=== PATIENT | female | born 2005 | race Caucasian/White ===

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

== ENCOUNTER 2023-01-29 16:08 | Outpatient (REF) | payer OTHER, SELFPAY ==
--- NOTE | ~2023-01-29 | XR_ITS ---
EXAMINATION: XR HIP, LEFT CLINICAL INFORMATION: Left hip pain COMPARISON: None available. TECHNIQUE: Two views of the left hip. FINDINGS: Bones and soft tissues are normal. No fracture. Alignment is anatomic. Hip joint space is maintained. XR/XR hip LT min 2V IMPRESSION: Normal left hip.
[2023-01-29 16:22] LABS: MANUAL DIFF FLAG NO
[2023-01-29 18:07] LABS: Basophils Percent Auto 0.4 % (0-2); Eosinophils Absolute Auto 0.1 X10*3/uL (0.0-0.4); Eosinophils Percent Auto 1.8 % (0-4); Hematocrit 42.3 % (37.0-47.0); Hemoglobin 13.9 g/dl (12.0-16.0); Imm Gran Abs Auto 0.02 X10*3/uL (0.00-0.03); Imm Gran Pct Auto 0.3 % (0.0-0.4); Lymphocytes Absolute Auto 2.3 X10*3/uL (1.2-4.9); Lymphocytes Percent Auto 32.6 % (20-40); Mean Corpuscular HGB Conc 32.9 g/dl (31.0-35.0); Mean Corpuscular Hemoglobin 29.1 pg (27.0-33.0); Mean Corpuscular Volume 88.7 fL (80.0-98.0); Mean Platelet Volume 9.4 fL (9.4-12.3); Monocytes Absolute Auto 0.7 X10*3/uL (0.1-1.2); Monocytes Percent Auto 9.7 % (2-11); Neutrophils Absolute Auto 3.9 x10*3/uL (2.0-8.3); Neutrophils Percent Auto 55.2 % (45-73); Platelet Count 301 X10*3/uL (160-400); Red Blood Count 4.77 X10*6/uL (4.20-5.50); Red Cell Distribution Width 11.8 % (11.0-16.0); White Blood Count 7.1 X10*3/uL (4.8-10.8)
[2023-01-29 18:13] LABS: Alanine Aminotransferase 8 U/L (0-31); Albumin Level 4.5 g/dL (3.5-5.0); Alkaline Phosphatase 28 U/L (39-117); Anion Gap 11 (12-20); Aspartate Amino Transferase 14 U/L (5-31); Bilirubin Total 2.1 mg/dL (0.0-1.0); Blood Urea Nitrogen 10 mg/dL (9-16); Calcium 9.7 mg/dL (8.4-10.2); Carbon Dioxide 26 mmol/L (22-29); Chloride 106 mmol/L (96-108); Estimated Glomerular Filt Rate > 60; Glucose Random 105 mg/dL (60-115); Sodium 139 mmol/L (135-145); Total Protein 7.7 g/dL (6.5-8.0)
[2023-01-29 18:29] LABS: TSH reflex Free T4 0.61 uIU/mL (0.32-4.0); Vitamin D 25-OH Total 13.9 ng/mL (>30)
== END 2023-01-29 16:09 | disposition home or self-care (01) ==
LOC: HO.LAB 16:08
PROVIDERS: PCP Nurse Practitioner Family; Visit Provider Nurse Practitioner Family
DX: Z00.00 Encounter for general adult medical examination without abnormal findings (principal); M25.552 Pain in left hip; E80.6 Other disorders of bilirubin metabolism; E55.9 Vitamin D deficiency, unspecified
CPT/HCPCS: 36415; 73502; 80053; 82306; 84443; 85025

== ENCOUNTER 2023-02-21 15:39 | Outpatient (REF) | payer OTHER, MEDICAID, SELFPAY | END 2023-02-21 15:40 | disposition home or self-care (01) | LOC: HO.LAB 15:39 | PROVIDERS: PCP Nurse Practitioner Family; Visit Provider Nurse Practitioner Family | DX: R17 Unspecified jaundice (principal); E55.9 Vitamin D deficiency, unspecified | CPT/HCPCS: 36415; 80076; 82306 ==

== ENCOUNTER 2023-06-27 10:28 | Outpatient (AMB) | payer OTHER, MEDICAID, SELFPAY ==
--- NOTE | 2023-06-27 10:30 | A.OFFPC_ITS ---
Vital Signs 06/27/23 10:31 06/27/23 10:49 Height 5 ft 2 in Weight 124 lb BMI 22.7 BP 130/70 110/74 Blood Pressure Location Lt brachial Lt brachial Position Sitting Sitting Pulse 84 Pulse Source Pulse Oximeter Pulse Oximetry (%) 98 Oxygen Delivery Method Room Air Intake Visit Reasons: Detected a heart murmur Intake Note: Patient is here to follow up on heart murmur. Recently found at during an exam at work. 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: Not Required per policy Accompanied by: Self / Same As Patient Allergies mirtazapine Allergy (Intermediate, Verified 06/27/23 10:42) Rash egg Allergy (Mild, Verified 06/27/23 10:42) Stomach Upset Medication List - Last Reconciled 06/27/23 by BRADEN Branch cholecalciferol (vitamin D3) 50 mcg PO DAILY dextroamphetamine-amphetamine 10 mg ER (Adderall XR) 10 mg PO DAILY fluocinonide 0.05% 0.25 - 0.5 mL topical BID PRN Tobacco use date assessed: 06/27/23 Dental Screening Dental Screen Date: 06/27/23 Did you have a dental visit in the last 12 months?: Yes Did you have a dental problem in the last 6 months where you did not have access to dental care?: No Was dental information given to patient?: Patient has dentist HPI Detected a heart murmur HPI Details Patient is a 18-year-old female who presents today for an office visit for a heart murmur. Medical history significant for ADHD, anxiety, history of asthma, psoriasis. Patient reports that she had exam for her employer and comp uter detected a heart murmur. Patient reports intermittent dizziness for the past 3 years, thought this was related to her vertigo. No shortness of breath, chest pain, wheezing. In addition, patient requested refill on fluocinonide topical solution for psoriasis and she will call Dermatology for an appointment. [facility] Medical History Viral illness Dysmenorrhea Surgical History History of placement of ear tubes Family History Mother Mental health disorder Social History Household Members: Family Housing: House Alcohol intake: current Alcohol intake frequency: a few times a month Patient Tobacco Use Status: Never used Tobacco Tobacco use type: Cigarette e-Cigarette/Vaping Use: Never Used Second Hand Smoke Exposure: No service: No Current occupational status: employed Current occupation: [employer] Cognitive needs: No Hearing needs: No Vision needs: Yes (Glasses) Questionnaire Thrive Questionnaire Date Thrive assessed: 07/18/22 SAMSON-7 AMB Questionnaire SAMSON-7 Date SAMSON - 7 assessed: 01/29/23 (pt seeing therapist for SAD ) Source: Developed by Drs. Eleazar Vale, Holly Edwards, Wale Robb and colleagues, with an educational maryana from [employer]. Review of Systems Const Denies body aches, Denies chills, Denies fever(s) and Denies headache(s) ENT Reports dizziness (Intermittent), Denies otalgia, Denies headache(s), Denies nasal discharge, Denies sinus pain and Denies sore throat Card Denies chest pain, Denies edema, Denies lightheadedness and Denies dyspnea Resp Denies cough, Denies dyspnea and Denies wheezing GI Denies abdominal pain Denies dysuria Musc Denies myalgias Skin/Breast Reports rash (Scalp) Neuro Reports dizziness (Intermittent) and Denies headache(s) Aller/Immun Denies wheezing Physical exam (Primary Care) Vital Signs: Last Vital Signs Pulse 84 06/27/23 10:31 BP 130/70 06/27/23 10:31 Pulse Ox 98 06/27/23 10:31 Oxygen Delivery Method Room Air 06/27/23 10:31 BMI result Body Mass Index 22.7 Tobacco/Smoking Status: Tobacco use Status Tobacco use date assessed 06/27/23 06/27/23 10:39 Patient Tobacco Use Status Never used Tobacco 06/27/23 10:39 Tobacco use type Cigarette 06/27/23 10:39 e-Cigarette/Vaping Use Never Used 06/27/23 10:39 Thrive Assessment: Date of Thrive Assessment Date Thrive assessed 07/18/22 06/27/23 10:39 Const General: cooperative and no acute distress Orientation/consciousness: patient oriented x3 HENMT Head: Yes normocephalic and Yes atraumatic Throat: Yes posterior oropharynx normal Eyes General: appearance normal, both eyes and all related structures Neck Neck: Yes normal visual inspection and Yes full ROM Resp Effort & Inspection: normal respiratory effort and able to speak in complete sentences Auscultation: clear to auscultation bilaterally, no crackles, no rales, no rhonchi and no wheezes Cardio Rate: regular rate Rhythm: abnormal rhythm (Intermittent mild irregular heartbeat) Heart sounds: S1 normal heart sound present, S2 normal heart sound present and no murmurs GI Auscultation: normal bowel sounds Skin Other: Generalized scalp with dry patches Neuro General: patient oriented x3 Gait exam (Neuro): Normal gait present Extrem General: Yes full ROM and No edema Assessment and Plan Assessment & Plan (1) Psoriasis: Code(s): L40.9 - Psoriasis, unspecified Plan: rx sent for fluocinonide topical p.r.n.- do not use on face Patient is to call Dermatology for an appointment (2) Irregular heart beat: Comment: mild intermittent Code(s): I49.9 - Cardiac arrhythmia, unspecified Plan: No heart murmur noted Rarely intermittent irregular heartbeat noted Patient denies acute symptoms Will obtain EKG and echocardiogram Plan Keep appointment with PCP as scheduled or follow-up sooner as needed Orders: Orders CA echo transthoracic complete Today I49.9 - Cardiac arrhythmia, unspecified ECG 12 lead EKG Today I49.9 - Cardiac arrhythmia, unspecified Medications: Changed From fluocinonide 0.05% 0.25 - 0.5 mL topical BID PRN L40.9 - Psoriasis, unspecified To fluocinonide 0.05% 0.25 - 0.5 mL topical DAILY PRN 20 mL 0RF rash L40.9 - Psoriasis, unspecified Coding Level of Care Code Est Pt Level 4 (35614) Diagnoses Psoriasis L40.9 Irregular heart beat I49.9
[2023-06-27 10:31] VITALS: BP 130/70; PULSE 84; O2SAT 98; BMI 22.7
[2023-06-27 10:49] VITALS: BP 110/74
== END 2023-06-27 10:57 | disposition home or self-care (01) ==
PROVIDERS: PCP Nurse Practitioner Family; Visit Provider Nurse Practitioner Family
DX: L40.9 Psoriasis, unspecified (principal); I49.9 Cardiac arrhythmia, unspecified
CPT/HCPCS: 99214

== ENCOUNTER → 2023-06-27 11:02 | Outpatient (REF) | payer OTHER, SELFPAY ==
--- NOTE | 2023-06-27 11:11 | ECG_ITS ---
Test Reason : irreg heartbeat Blood Pressure : / mmHG Vent. Rate : 064 BPM Atrial Rate : 064 BPM P-R Int : 130 ms QRS Dur : 094 ms QT Int : 426 ms P-R-T Axes : 051 058 063 degrees QTc Int : 439 ms Normal sinus rhythm with Sinus Arrhythmia RSR' or QR pattern in V1 suggests right ventricular conduction delay Borderline ECG No previous ECGs available Referred By: Gladis Armas Electronically Signed By:CHYNA MCHUGH MD
== END ==
LOC: HO.CARD 11:02
PROVIDERS: PCP Nurse Practitioner Family; Visit Provider Nurse Practitioner Family
DX: I49.9 Cardiac arrhythmia, unspecified (principal)
CPT/HCPCS: 93005

== ENCOUNTER → 2023-07-29 11:02 | Outpatient (BNV) | payer OTHER, SELFPAY | PROVIDERS: PCP Nurse Practitioner Family; Visit Provider Internal Medicine | DX: I36.1 Nonrheumatic tricuspid (valve) insufficiency (principal) | CPT/HCPCS: 93306 ==

== ENCOUNTER → 2023-07-29 11:18 | Outpatient (REF) | payer OTHER, SELFPAY ==
--- NOTE | 2023-07-29 11:02 | CA_ITS ---
Transthoracic Echocardiogram Patient (Last, First, Middle): Janet Robison, Gender: Female Date of : 2005 Age: 18 Procedure Date: 07/29/2023 Procedure Type: Transthoracic Echocardiogram Location: OP Height: 157.48 cm Weight: 56.7 kg BSA: 1.57 m2 Heart Rate: bpm BP: 100 / 60 mmHg Consulting Practice Director: PAPI/ANTONIO Referring MD: Gladis FELICIANO Symptoms: I49.9 - Cardiac arrhythmia, unspecified Study Quality: Adequate ECG Rhythm: Sinus Conclusions: - The left ventricular systolic function is normal. The calculated ejection fraction is 63% by biplane method. - No obvious valvular pathology seen on this study. Findings Left Ventricle Normal left ventricular cavity size. There is normal left ventricular wall thickness. The left ventricular systolic function is normal. The calculated ejection fraction is 63% by biplane method. There is no evidence of regional wall motion abnormalities. Diastolic function is normal for age. LV peak GLS -19.3%. Right Ventricle Normal right ventricular cavity size and systolic function. Atria Both atria are normal in size. Aortic Valve There is a normal trileaflet aortic valve. There is no aortic valve stenosis. There is no aortic valve regurgitation. Mitral Valve The mitral valve appears normal. There is trace mitral valve regurgitation. There is no mitral valve stenosis. Pulmonic Valve There is trace pulmonic valve regurgitation. Tricuspid Valve Normal tricuspid valve structure. There is mild tricuspid valve regurgitation. There is no evidence of pulmonary hypertension. Great Vessels The asc aorta is normal in size. Venous The inferior vena cava is normal in size and collapses greater than 50% with inspiration. Pericardium/Pleural There is no evidence of pericardial effusion. Prior Study Comparison No prior study available for comparison. Recommendations, Care & Conclusions No obvious valvular pathology seen on this study. Measurements 2D Linear Measurements IVSd: 0.69 0.6-0.9/0.6-1.0 cm LVIDd: 4.12 3.9-5.3/4.2-5.9 cm LVIDd Index: 2.62 2.4-3.2/2.2-3.1 cm/m2 LVIDs: 2.58 2.0-3.6 cm LVPWd: 0.68 0.7-1.1 cm LA Diam: 2.30 2.7-3.8/3.0-4.0 cm LAIDs Index: 1.46 1.5-2.3 cm/m2 LV Mass: 99.07 67-162/88-224 g LV Mass Index: 63.10 43-95/49-115 g/m2 LVOT Diam: 1.80 3.0+(-)1.3 cm 2D Systolic Function EF 4C: 62.90 >55% EF 2C: 60.20 >55% EF BiP: 62.80 >55% Mitral Valve MV Pk E: 0.75 MV PK A: 0.46 MV Decel Time: 228.00 E/A: 1.60 E'Lateral: 14.80 E'Medial: 12.30 E/E' Med: 6.10 E/E' Lat: 5.00 PHT: 67.00 MVA PHT: 3.28 Decel Bandera: 3.27 Aortic Valve AoV Pk Carlitos: 1.22 AoV Mn Carlitos: 0.86 AoV VTI: 0.27 AoV Pk Grad: 6.00 Aov Mn Grad: 3.00 ROZ Cont.VTI: 1.76 LVOT LVOT Pk Carlitos: 0.86 LVOT Mn Carlitos: 0.64 LVOT VTI: 0.19 LVOT Pk Grad: 3.00 LVOT Mn Grad: 2.00 LVOT Diam: 1.80 LVOT Area: 2.54 Diastolic Function MV Pk E: 0.75 MV Pk A: 0.46 E/A: 1.60 E'Medial: 12.30 E/E' Med: 6.10 E' Laterial: 14.80 E/E' Lat: 5.00 Right Ventricle TAPSE (mm): 15.00 TVS' Carlitos: 9.32 Tricuspid Valve TR Pk Carlitos: 1.89 TR Pk Grad: 14.00 RA Press: 3.00 RVSP: 17.00 Great Vessels Aorta Sinus of Valsalva: 2.26 2.0-3.[address] [place]: 1.75 1.7-3.4 cm Ao Asc: 2.60 2.1-3.4 cm Updated in Other Vendor System with Status of Final Wilbur Mcdonald MD electronically signed on 07/29/2023 2:02:21 PM with status of Final
== END ==
LOC: HO.CARD 11:18
PROVIDERS: PCP Nurse Practitioner Family; Visit Provider Nurse Practitioner Family
DX: I49.9 Cardiac arrhythmia, unspecified (principal)
CPT/HCPCS: 93306; 93356

== ENCOUNTER 2023-09-16 14:17 | Outpatient (AMB) | payer OTHER, MEDICAID, SELFPAY ==
[2023-09-16 14:18] VITALS: BP 122/80; PULSE 90; O2SAT 98; BMI 22.3
--- NOTE | 2023-09-16 14:18 | A.OFFPC_ITS ---
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 Nurse Hh Case Manager: Not Required per policy Accompanied by: Self / Same As Patient Allergies mirtazapine Allergy (Intermediate, Verified 09/16/23 14:37) Rash egg Allergy (Mild, Verified 09/16/23 14:37) Stomach Upset Medication List - Last Reconciled 09/16/23 by Benny Gordillo MD azithromycin 250 mg PO DAILY cholecalciferol (vitamin D3) 50 mcg PO DAILY dextroamphetamine-amphetamine 10 mg ER (Adderall XR) 10 mg PO DAILY fluocinonide 0.05% 0.25 - 0.5 mL topical DAILY PRN Tobacco use date assessed: 09/16/23 Dental Screening Dental Screen Date: 09/16/23 Did you have a dental visit in the last 12 months?: Yes Did you have a dental problem in the last 6 months where you did not have access to dental care?: No Was dental information given to patient?: Patient has dentist HPI [facility] HPI Details 18-year-old female presents to the [facility] for a sick visit. I am covering for her provider. Patient reports itchiness and discharge from the right eye. She does use contact lenses. No blurred vision. [facility] Medical History Viral illness Dysmenorrhea Surgical History History of placement of ear tubes Family History Mother Mental health disorder Social History Household Members: Family Housing: House Alcohol intake: current Alcohol intake frequency: a few times a month Patient Tobacco Use Status: Never used Tobacco Tobacco use type: Cigarette e-Cigarette/Vaping Use: Never Used Second Hand Smoke Exposure: No service: No Current occupational status: employed Current occupation: [employer] Cognitive needs: No Hearing needs: No Vision needs: Yes (Glasses) Questionnaire PHQ-9 Over the last 2 weeks, how often have you been bothered by any of the following problems? 1. Little interest or pleasure in doing things: not at all 2. Feeling down, depressed, or hopeless: not at all 3. Trouble falling or staying asleep, or sleeping too much: not at all 4. Feeling tired or having little energy: not at all 5. Poor appetite or overeating: not at all 6. Feeling bad about yourself - or that you are a failure or have let yourself or your family down: not at all 7. Trouble concentrating on things, such as reading the newspaper or watching television: not at all 8. Moving or speaking so slowly that other people could have noticed. Or the opposite - being so fidgety or restless that you have been moving around a lot more than usual: not at all 9. Thoughts that you would be better off or of hurting yourself in some way: not at all Total score: 0 Depression Screening Interpretation: Negative Depression Screening Done: Yes [id number] - PHQ-9 Billing: Yes Source: Developed by Drs. Eleazar Vale, Holly Edwards, Wale Robb and colleagues, with an educational maryana from [employer]. Thrive Questionnaire Date Thrive assessed: 09/16/23 I am a: Patient What is your living situation today?: I have a steady place to live Within the past 12 months, did the food you bought not last and you didn't have the money to get more?: Never true Within the past 12 months, did you worry whether your food would run out before you got money to buy more?: Never true Do you have trouble paying for medicines?: No Do you have trouble getting transportation to medical appointments?: No Do you have trouble paying your heating and electricity bill?: No Do you have trouble taking care of your child, family member or friend?: No Do you have trouble with day-to-day activities such as bathing, preparing meals, shopping, managing finances, etc.?: No Are you currently unemployed and looking for a job?: No Are you interested in more education?: No Please select the resources that you would like help with: None THRIVE Score: 0 AUDIT C Alcohol Use Questionnaire (AUDIT-C) 1. How often do you have a drink containing alcohol?: Monthly or less 2. How many drinks containing alcohol do you have on a typical day when you are drinking?: 1 or 2 3. How often do you have six or more drinks on one occasion?: Never Total Score: 1 Score Reviewed/Action Taken: No SAMSON-7 AMB Questionnaire SAMSON-7 Date SAMSON - 7 assessed: 09/16/23 (pt seeing therapist for SAD ) Source: Developed by Drs. Eleazar Vale, Holly Edwards, Wale Robb and colleagues, with an educational maryana from [employer]. Physical exam (Primary Care) Vital Signs: Last Vital Signs Pulse 90 09/16/23 14:18 BP 122/80 09/16/23 14:18 Pulse Ox 98 09/16/23 14:18 Oxygen Delivery Method Room Air 09/16/23 14:18 Care Plan Goal for BP management: Blood pressure is in range. BMI result Body Mass Index 22.3 Tobacco/Smoking Status: Tobacco use Status Tobacco use date assessed 09/16/23 09/16/23 14:19 Patient Tobacco Use Status Never used Tobacco 09/16/23 14:19 Tobacco use type Cigarette 09/16/23 14:19 e-Cigarette/Vaping Use Never Used 09/16/23 14:19 PHQ-9: PHQ-9 Score PHQ-9: Total score 0 09/16/23 14:19 Depression Screening Interpretation: Negative Thrive Assessment: Date of Thrive Assessment Date Thrive assessed 09/16/23 09/16/23 14:19 Eyes Other: Right eye: Mild congestion of the bulbar conjunctiva. Corneas clear. Anterior chambers clear. Left eye: Clear conjunctiva, clear cornea. Assessment and Plan Assessment & Plan (1) Conjunctivitis: Code(s): H10.9 - Unspecified conjunctivitis Plan: Avoid contact lenses till all symptoms clear. Erythromycin ophthalmic ointment sent. If symptoms do not improve, to follow-up here. Coding Level of Care Code Est Pt Level 3 (44971) Diagnoses Conjunctivitis H10.9
== END 2023-09-16 14:37 | disposition home or self-care (01) ==
PROVIDERS: PCP Nurse Practitioner Family; Visit Provider Internal Medicine
DX: H10.9 Unspecified conjunctivitis (principal)
CPT/HCPCS: 99213

== ENCOUNTER 2023-10-21 08:54 | Outpatient (AMB) | payer OTHER, MEDICAID, SELFPAY ==
--- NOTE | 2023-10-21 08:57 | A.OFFVIS_ITS ---
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 She subsequently had an echocardiogram which showed trace mitral regurgitation mild tricuspid regurgitation which are both within normal limits for an echocardiogram finding. Patient has no cardiac symptoms. She is done well and routinely exercises without any symptoms of shortness of breath or chest pain. She does have symptoms of dizziness issues says that occasionally when even when she is sitting down she feels like she is tilting and has been diagnosed with vertigo. She has no symptoms of palpitations or shortness of breath at time. No loss of consciousness. She drinks plenty of water. She denies any excessive caffeine or alcohol intake. No drug abuse. She has no family history of premature sudden cardiac that or coronary artery disease. [facility] Medical History Viral illness Dysmenorrhea Surgical History History of placement of ear tubes Family History Mother Mental health disorder Social History Household Members: Family Housing: House Alcohol intake: current Alcohol intake frequency: a few times a month Patient Tobacco Use Status: Never used Tobacco Tobacco use type: Cigarette e-Cigarette/Vaping Use: Never Used Second Hand Smoke Exposure: No service: No Current occupational status: employed Current occupation: [employer] Cognitive needs: No Hearing needs: No Vision needs: Yes (Glasses) Review of Systems Const All systems reviewed & are unremarkable except as noted in HPI and below Denies chills, Denies daytime sleepiness, Denies fatigue, Denies fever(s), Denies frequent falls, Denies poor appetite, Denies snoring, Denies stops breathing during sleep, Denies weakness, Denies weight gain and Denies weight loss Eyes Denies loss of vision ENT Denies dizziness and Denies hearing loss Card Details: dizziness Denies chest pain, Denies claudication, Denies leg edema, Denies lightheadedness, Denies palpitations, Denies dyspnea, Denies dyspnea on exertion and Denies orthopnea Resp Denies cough, Denies excessive phlegm production, Denies dyspnea, Denies dyspnea on exertion, Denies snoring and Denies wheezing GI Denies abdominal pain, Denies hematochezia, Denies change in bowel habits, Denies nausea and Denies vomiting Denies urinary frequency and Denies dysuria Musc Denies arthralgias, Denies muscle weakness, Denies numbness and Denies other (frequent falls) Skin/Breast Denies nail changes and Denies rash Neuro Denies Abnormal speech present, Denies dizziness, Denies frequent falls, Denies loss of vision, Denies memory loss, Denies numbness and Denies weakness Psych Denies depression and Denies memory loss Endo Denies fatigue and Denies palpitations Bong/Lymph Reports easy bruising and Reports other (anemia) Aller/Immun Denies wheezing Physical Exam Vital Signs: Last Vital Signs Pulse 81 10/21/23 08:58 BP 118/60 10/21/23 08:58 BMI result Body Mass Index 22.6 Const General: cooperative, comfortable, no acute distress, alert, awake and Physica lly active Nutritional Appearance: thin Orientation/consciousness: patient oriented x3 Limitations: no limitations HEENT Head: Yes normocephalic and Yes atraumatic Neck Neck: Yes trachea midline, Yes supple and Yes no JVD Resp Effort & Inspection: normal respiratory effort Auscultation: clear to auscultation bilaterally Cardio Jugular venous distension: no JVD Palpation: normal PMI Rate: regular rate Heart sounds: S1 normal heart sound present, S2 normal heart sound present, no click, no gallops and no murmurs Bruits: no carotid bruits Peripheral pulses: Peripheral pulses 2+ throughout GI Auscultation: normal bowel sounds Skin General skin exam: no rashes or lesions noted Neuro General: patient oriented x3 and no focal motor deficits Speech: No Abnormal speech present Extrem General: Yes no clubbing, cyanosis or edema Psych Appearance: grossly normal Office Procedures EKG Details: EKG shows normal sinus rhythm with sinus arrhythmia with normal EKG at 81 beats per minute [id number], Complete Assessment & Plan Assessment & Plan (1) Cardiac murmur: Code(s): R01.1 - Cardiac murmur, unspecified Plan: Patient referred here for cardiac murmur without any significant murmur appreciated on today's exam with trivial mitral and mild tricuspid regu rgitation. Both of these valve abnormalities are not significant this was discussed with her. There is no change in therapy or management needs to be pursued. 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 She is encouraged to continue remain in good physical shape and participate in regular physical activity. Sinus arrhythmias normal at her age. Will follow with her if need be. Thank you for allowing me to partake in the care Coding Level of Care Code New Pt Level 3 (19432) Diagnoses Cardiac murmur R01.1 CPT Codes EKG - CPT: 66787-[id number], Complete ([id number])
[2023-10-21 08:58] VITALS: BP 118/60; PULSE 81; BMI 22.6
== END 2023-10-21 09:43 | disposition home or self-care (01) ==
PROVIDERS: PCP Nurse Practitioner Family; Visit Provider Internal Medicine Cardiovascular Disease
DX: R01.1 Cardiac murmur, unspecified (principal)
CPT/HCPCS: 93010; 99203

== ENCOUNTER → 2023-10-21 08:54 | Outpatient (BNVA) | payer OTHER, SELFPAY | PROVIDERS: PCP Nurse Practitioner Family; Visit Provider Internal Medicine Cardiovascular Disease | DX: R01.1 Cardiac murmur, unspecified (principal) | CPT/HCPCS: 93005 ==

== ENCOUNTER 2023-10-22 08:31 | Outpatient (AMB) | payer OTHER, MEDICAID, SELFPAY ==
[2023-10-22 08:40] VITALS: BP 112/80; BMI 22.5
--- NOTE | 2023-10-22 08:40 | MHC.PC.OV ---
Vital Signs 10/22/23 08:40 Height 5 ft 2 in Weight 123 lb BMI 22.5 BP 112/80 Blood Pressure Location Lt brachial Position Sitting Intake Visit Reasons: Dermatology referral- psoriasis flare up Intake Note: Patient here for psoriasis flare up, dermatology referral request Magician/Illusionist Required: No Accompanied by: Self / Same As Patient Allergies mirtazapine Allergy (Intermediate, Verified 10/22/23 09:02) Rash egg Allergy (Mild, Verified 10/22/23 09:02) Stomach Upset pecan nut Allergy (Mild, Verified 10/22/23 09:02) Itching Medication List - Last Reconciled 10/22/23 by Esthela Adkins MD cholecalciferol (vitamin D3) 50 mcg PO DAILY dextroamphetamine-amphetamine 10 mg ER (Adderall XR) 10 mg PO DAILY fluocinonide 0.05% 0.25 - 0.5 mL topical DAILY PRN Tobacco use date assessed: 09/16/23 Dental Screening Dental Screen Date: 10/22/23 Did you have a dental visit in the last 12 months?: Yes Did you have a dental problem in the last 6 months where you did not have access to dental care?: No Was dental information given to patient?: Patient has dentist HPI HPI Comments History of Present Illness Details This is a 18-year-old female with ADHD and low vitamin-D level that complains of dry scaly skin in different areas of the body in clothing the scalp that has been present on and off but now has been worse than usual. This looks like psoriasis and steroid treatment is not working for her. I will prescribe another cream and shampoo and will referred to dermatology. ADHD is follow by Psychiatry and has been stable with Adderall. On vitamin-D supplements for low vitamin-D. Denies any chest pain or shortness of breath. [facility] Medical History (Updated 10/22/23 @ 10:48 by Esthela Adkins MD) Viral illness Dysmenorrhea Surgical History History of placement of ear tubes Family History Mother Mental health disorder Social History Household Members: Family Housing: House Alcohol intake: current Alcohol intake frequency: a few times a month Patient Tobacco Use Status: Never used Tobacco e-Cigarette/Vaping Use: Never Used Second Hand Smoke Exposure: No service: No Current occupational status: employed Current occupation: [employer] Current occupational exposures/hazards: No Cognitive needs: No Hearing needs: No Vision needs: Yes (Glasses) Questionnaire Thrive Questionnaire Date Thrive assessed: 09/16/23 SAMSON-7 AMB Questionnaire SAMSON-7 Date SAMSON - 7 assessed: 10/22/23 (pt seeing therapist for SAD ) Feeling nervous, anxious, or on edge: 1 = Several days Not being able to stop or control worryin = Not at all Worrying too much about different things: 2 = More than half the days Trouble relaxin = More than half the days Being so restless that it is hard to sit still: 0 = Not at all Becoming easily annoyed or irritable: 0 = Not at all Feeling afraid as if something awful might happen: 0 = Not at all Total SAMSON-7 score (0-4 normal; 5-9 mild; 10-14 moderate; 15-21 severe): 5 Source: Developed by Drs. Eleazar Vale, Holly Edwards, Wale Robb and colleagues, with an educational maryana from [employer]. SAMSON-7 Assessment Billing SAMSON-7 Assessment Tool: SAMSON-7 Assessment 86380 Review of Systems Const All systems reviewed & are unremarkable except as noted in HPI and below Eyes Reports no additional complaints, Denies change in vision and Denies other visual disturbances Card Denies chest pain at rest, Denies chest pain with activity, Denies edema, Denies irregular heart rhythm, Denies claudication, Denies dyspnea, Denies dyspnea on exertion, Denies orthopnea, Denies paroxysmal nocturnal dyspnea and Denies slow heart rate Resp Denies cough, Denies dyspnea and Denies dyspnea on exertion GI Denies abdominal pain, Denies change in bowel habits, Denies excessive flatus, Denies nausea and Denies vomiting Denies urinary incontinence, Denies urinary hesitancy and Denies urinary urgency Physical exam (Primary Care) Vital Signs: Last Vital Signs BP 112/80 10/22/23 08:40 BMI result Body Mass Index 22.5 Tobacco/Smoking Status: Tobacco use Status Tobacco use date assessed 09/16/23 10/22/23 08:47 Patient Tobacco Use Status Never used Tobacco 10/22/23 08:47 Tobacco use type 10/22/23 08:47 e-Cigarette/Vaping Use Never Used 10/22/23 08:47 Thrive Assessment: Date of Thrive Assessment Date Thrive assessed 09/16/23 10/22/23 08:47 Neck Neck: Yes normal visual inspection and Yes supple Resp Effort & Inspection: normal respiratory effort Auscultation: clear to auscultation bilaterally Cardio Jugular venous distension: no JVD Rate: regular rate Rhythm: regular rhythm Heart sounds: S1 normal heart sound present and S2 normal heart sound present Extrem General: Yes full ROM Psych Appearance: grossly normal Assessment and Plan Assessment & Plan (1) Psoriasis: Code(s): L40.9 - Psoriasis, unspecified Plan: Start steroid cream and shampoo. Follow-up with psychiatry. (2) ADHD: Comment: She f/u's with psychiatrist, Dr. Ainsley Lawson from [place].? Code(s): F90.9 - Attention-deficit hyperactivity disorder, unspecified type Qualifiers: Attention deficit-hyperactivity disorder type: predominantly inattentive Qualified Code(s): F90.0 - Attention-deficit hyperactivity disorder, predominantly inattentive type Plan: Continue Adderall. Follow-up with psychiatry. (3) Low vitamin D level: Code(s): R79.89 - Other specified abnormal findings of blood chemistry Plan: Continue vitamin-D. Orders: Referrals Dermatology Referral L40.9 - Psoriasis, unspecified Medications: New clobetasol 0.05% 1 appl topical DAILY 30 days 25 mL 1RF clobetasol 0.05% 1 appl topical BID 2 weeks 30 grams 1RF L40.9 - Psoriasis, unspecified Coding Level of Care Code Est Pt Level 3 (11927) Diagnoses Psoriasis L40.9 Attention deficit hyperactivity disorder (ADHD), predominantly inattentive type F90.0 Attention deficit-hyperactivity disorder type: predominantly inattentive Low vitamin D level R79.89 Additional Codes SAMSON-7 Assessment Billing - SAMSON-7 Assessment Tool: SAMSON-7 Assessment 01245 ([id number]) Time Spent (min) 19
== END 2023-10-22 09:12 | disposition home or self-care (01) ==
PROVIDERS: PCP Internal Medicine; Visit Provider Internal Medicine
DX: L40.9 Psoriasis, unspecified (principal); F90.0 Attention-deficit hyperactivity disorder, predominantly inattentive type; R79.89 Other specified abnormal findings of blood chemistry
CPT/HCPCS: 99213

== ENCOUNTER 2024-04-01 12:47 | Outpatient (AMB) | payer OTHER, MEDICAID, SELFPAY ==
--- NOTE | 2024-04-01 12:51 | A.OFFPC_ITS ---
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 She denies any chest pain or shortness on breath. No acute complaints. Complains of multiple allergies and I will order a RAST test. [facility] Medical History (Updated 04/01/24 @ 13:19 by Esthela Adkins MD) Viral illness Dysmenorrhea Surgical History History of placement of ear tubes Family History (Updated 04/01/24 @ 13:13 by Esthela Adkins MD) Mother Mental health disorder Father No problems noted. Social History Household Members: Family Housing: House Alcohol intake: current Alcohol intake frequency: a few times a month Patient Tobacco Use Status: Never used Tobacco e-Cigarette/Vaping Use: Never Used Second Hand Smoke Exposure: No service: No Current occupational status: employed Current occupation: [employer] Current occupational exposures/hazards: No Cognitive needs: No Hearing needs: No Vision needs: Yes (Glasses) Questionnaire Thrive Questionnaire Date Thrive assessed: 04/01/24 I am a: Patient What is your living situation today?: I have a steady place to live Within the past 12 months, did the food you bought not last and you didn't have the money to get more?: Never true Within the past 12 months, did you worry whether your food would run out before you got money to buy more?: Never true Do you have trouble paying for medicines?: No Do you have trouble getting transportation to medical appointments?: No Do you have trouble paying your heating and electricity bill?: No Do you have trouble taking care of your child, family member or friend?: No Do you have trouble with day-to-day activities such as bathing, preparing meals, shopping, managing finances, etc.?: No Are you currently unemployed and looking for a job?: No Are you interested in more education?: No Please select the resources that you would like help with: None Currently or been in a relationship where the following occur: No concerns reported THRIVE Score: 0 AUDIT C Alcohol Use Questionnaire (AUDIT-C) 1. How often do you have a drink containing alcohol?: Monthly or less 2. How many drinks containing alcohol do you have on a typical day when you are drinking?: 1 or 2 3. How often do you have six or more drinks on one occasion?: Never Total Score: 1 SAMSON-7 AMB Questionnaire SAMSON-7 Date SAMSON - 7 assessed: 10/22/23 (pt seeing therapist for SAD ) Source: Developed by Drs. Eleazar Vale, Holly Edwards, Wale Robb and colleagues, with an educational maryana from [employer]. Review of Systems Const All systems reviewed & are unremarkable except as noted in HPI and below Card Denies chest pain at rest, Denies chest pain with activity, Denies edema, Denies irregular heart rhythm, Denies claudication, Denies dyspnea, Denies dyspnea on exertion, Denies orthopnea, Denies paroxysmal nocturnal dyspnea and Denies slow heart rate Resp Denies cough, Denies dyspnea and Denies dyspnea on exertion GI Denies abdominal pain, Denies change in bowel habits, Denies excessive flatus, Denies nausea and Denies vomiting Denies urinary incontinence, Denies urinary hesitancy and Denies urinary urgency Musc Denies abnormal gait, Denies atrophy, Denies deformity and Denies limited range of motion Skin/Breast Denies bleeding lesions, Denies changing lesions and Denies rash Neuro Denies abnormal gait, Denies behavioral changes and Denies lack of coordination Psych Denies behavioral changes Physical exam (Primary Care) Vital Signs: Last Vital Signs BP 110/72 04/01/24 12:53 BMI result Body Mass Index 22.9 Tobacco/Smoking Status: Tobacco use Status Tobacco use date assessed 09/16/23 04/01/24 12:57 Patient Tobacco Use Status Never used Tobacco 04/01/24 12:57 Tobacco use type 12/15/23 09:10 e-Cigarette/Vaping Use Never Used 04/01/24 12:57 Thrive Assessment: Date of Thrive Assessment Date Thrive assessed 04/01/24 04/01/24 12:57 Currently or been in a relationship where the following occur: No concerns reported [facility] Head: Yes normal to inspection, Yes normocephalic and Yes atraumatic Ears: external ears normal Eyes General: appearance normal, both eyes and all related structures Eyelids: Yes eyelids normal Conjunctivae: conjunctivae normal Neck Neck: Yes normal visual inspection and Yes supple Resp Effort & Inspection: normal respiratory effort Auscultation: clear to auscultation bilaterally Cardio Jugular venous distension: no JVD Rate: regular rate Rhythm: regular rhythm Heart sounds: S1 normal heart sound present and S2 normal heart sound present GI Inspection: Yes normal to inspection Palpation (GI): Soft to palpation and nontender Auscultation: normal bowel sounds Skin General skin exam: no rashes or lesions noted Neuro General: no focal motor deficits Extrem General: Yes full ROM Psych Appearance: grossly normal Assessment and Plan Assessment & Plan (1) Physical exam: Onset Date: ~07/16/21 Comment: RAI [facility] Pfizer 11/21, 12/13. Code(s): Z00.00 - Encounter for general adult medical examination without abnormal findings Plan: Repeat in a year. (2) Multiple allergies: Code(s): Z88.9 - Allergy status to unspecified drugs, medicaments and biological phillips bstances Plan: RAST test ordered. Orders: Orders Rast Allergen Today Z88.9 - Allergy status to unspecified drugs, medicaments and biological substances Lipid Panel Today Z00.00 - Encounter for general adult medical examination without abnormal findings Complete Blood Count Auto Diff Today J30.89 - Other allergic rhinitis Vitamin D 25-OH Total Today E55.9 - Vitamin D deficiency, unspecified Comprehensive [place]. Panel Fast Today Z00.00 - Encounter for general adult medical examination without abnormal findings Thyroid Stimulating Hormone Today N94.6 - Dysmenorrhea, unspecified Coding Level of Care Code Est Pt Level 3 (51282) Est Pt Prev Care 18-39y(68659) Diagnoses Physical exam Z00.00 Multiple allergies Z88.9 Time Spent (min) 30
[2024-04-01 12:53] VITALS: BP 110/72; BMI 22.9
== END 2024-04-01 13:26 | disposition home or self-care (01) ==
PROVIDERS: PCP Nurse Practitioner Family; Visit Provider Internal Medicine
DX: Z00.00 Encounter for general adult medical examination without abnormal findings (principal); Z88.9 Allergy status to unspecified drugs, medicaments and biological substances
CPT/HCPCS: 99395

== ENCOUNTER 2024-04-05 16:38 | Outpatient (REF) | payer OTHER, MEDICAID, SELFPAY ==
[2024-04-05 16:56] LABS: MANUAL DIFF FLAG NO
[2024-04-05 17:10] LABS: Basophils Percent Auto 0.5 % (0-2); Eosinophils Absolute Auto 0.1 X10*3/uL (0.0-0.4); Eosinophils Percent Auto 0.8 % (0-4); Hematocrit 39.9 % (37.0-47.0); Hemoglobin 13.1 g/dl (12.0-16.0); Imm Gran Abs Auto 0.03 X10*3/uL (0.00-0.03); Imm Gran Pct Auto 0.4 % (0.0-0.4); Lymphocytes Percent Auto 26.3 % (20-40); Mean Corpuscular HGB Conc 32.8 g/dl (31.0-35.0); Mean Corpuscular Hemoglobin 29.6 pg (27.0-33.0); Mean Corpuscular Volume 90.3 fL (80.0-98.0); Mean Platelet Volume 8.9 fL (9.4-12.3); Monocytes Absolute Auto 0.7 X10*3/uL (0.1-1.2); Monocytes Percent Auto 8.7 % (2-11); Neutrophils Absolute Auto 4.8 x10*3/uL (2.0-8.3); Neutrophils Percent Auto 63.3 % (45-73); Platelet Count 297 X10*3/uL (160-400); Red Blood Count 4.42 X10*6/uL (4.20-5.50); Red Cell Distribution Width 11.6 % (11.0-16.0); White Blood Count 7.6 X10*3/uL (4.8-10.8)
[2024-04-05 18:16] LABS: Alanine Aminotransferase 11 U/L (0-31); Albumin Level 4.6 g/dL (3.5-5.0); Alkaline Phosphatase 27 U/L (39-117); Anion Gap 13 (12-20); Aspartate Amino Transferase 17 U/L (5-31); Bilirubin Total 1.2 mg/dL (0.0-1.0); Blood Urea Nitrogen 12 mg/dL (9-16); Calcium 10.1 mg/dL (8.4-10.2); Carbon Dioxide 27 mmol/L (22-29); Chloride 102 mmol/L (96-108); Cholesterol 179 mg/dL (<200); Estimated Glomerular Filt Rate > 60; Glucose Fasting 101 mg/dL (60-99); HDL Cholesterol 63 mg/dL (>40); LDL Cholesterol Calculated 107 mg/dL (<100); Potassium 3.8 mmol/L (3.3-5.1); Sodium 138 mmol/L (135-145); Total Protein 7.6 g/dL (6.5-8.0); Triglycerides 49 mg/dL (<150)
[2024-04-05 18:32] LABS: Thyroid Stimulating Hormone 0.76 uIU/mL (0.32-4.0); Vitamin D 25-OH Total 34.9 ng/mL (>30)
== END 2024-04-05 16:39 | disposition home or self-care (01) ==
LOC: HO.LAB 16:38
PROVIDERS: PCP Internal Medicine; Visit Provider Internal Medicine
DX: Z00.00 Encounter for general adult medical examination without abnormal findings (principal); Z88.9 Allergy status to unspecified drugs, medicaments and biological substances; E55.9 Vitamin D deficiency, unspecified; J30.89 Other allergic rhinitis; N94.6 Dysmenorrhea, unspecified
CPT/HCPCS: 36415; 80053; 80061; 82306; 84443; 85025; 86003

== ENCOUNTER 2025-04-11 12:59 | Outpatient (AMB) | payer OTHER, SELFPAY ==
--- NOTE | 2025-04-11 13:02 | MHC.PC.OV ---
Vital Signs 04/11/25 13:03 Height 5 ft 2 in Weight 135 lb 2 oz BMI 24.7 BP 102/74 Blood Pressure Location Lt brachial Position Sitting Respiration 18 Pulse 92 Pulse Source Pulse Oximeter Temp 97.5 F Temp Source Temporal Artery Scan Pulse Oximetry (%) 98 Oxygen Delivery Method Room Air Intake Visit Reasons: Annual Exam Grants Director Required: No Accompanied by: Self / Same As Patient Allergies mirtazapine Allergy (Intermediate, Verified 04/11/25 13:11) Rash egg Allergy (Mild, Verified 04/11/25 13:11) Stomach Upset pecan nut Allergy (Mild, Verified 04/11/25 13:11) Itching Medication List - Last Reconciled 04/11/25 by Esthela Adkins MD clobetasol 0.05% 1 appl topical DAILY 30 days clobetasol 0.05% 1 appl topical BID 2 weeks multivitamin 1 tab PO DAILY Tobacco use date assessed: 04/11/25 Dental Screening Dental Screen Date: 04/11/25 Did you have a dental visit in the last 12 months?: Yes Did you have a dental problem in the last 6 months where you did not have access to dental care?: No Was dental information given to patient?: Patient has dentist HPI HPI Comments History of Present Illness Details The patient is a 19-year-old female presenting for a physical exam. She has a history of mild major depression, which is well controlled without medication. The patient has not experienced any acute complaints related to this condition. The patient also has psoriasis, for which she uses clobetasol cream. This condition is managed by dermatology, although she has not had a recent follow-up. Her preventative care includes a Tdap vaccination administered in 2015, with the next dose due in 2025. She has never had a Pap smear and will be referred to an WATER ATTENDANT for this screening. [facility] Medical History Viral illness Dysmenorrhea Surgical History History of placement of ear tubes Family History Mother Mental health disorder Father No problems noted. Social History Household Members: Family Housing: House Alcohol intake: current Alcohol intake frequency: a few times a month Patient Tobacco Use Status: Never used Tobacco e-Cigarette/Vaping Use: Never Used Second Hand Smoke Exposure: No service: No Current occupational status: employed Current occupation: [employer] Current occupational exposures/hazards: No Cognitive needs: No Hearing needs: No Vision needs: Yes (Glasses) Questionnaire PHQ-9 Over the last 2 weeks, how often have you been bothered by any of the following problems? 1. Little interest or pleasure in doing things: several days 2. Feeling down, depressed, or hopeless: not at all 3. Trouble falling or staying asleep, or sleeping too much: nearly every day 4. Feeling tired or having little energy: several days 5. Poor appetite or overeating: several days 6. Feeling bad about yourself - or that you are a failure or have let yourself or your family down: not at all 7. Trouble concentrating on things, such as reading the newspaper or watching television: more than half the days 8. Moving or speaking so slowly that other people could have noticed. Or the opposite - being so fidgety or restless that you have been moving around a lot more than usual: several days 9. Thoughts that you would be better off or of hurting yourself in some way: not at all Total score: 9 Depression Screening Interpretation: Positive Depression Screening Follow-up: Existing condition and Follow-up Visit Requested Depression Screening Done: Yes 45870 - PHQ-9 Billing: Yes Source: Developed by Drs. Eleazar Vale, Holly Edwards, Wale Robb and colleagues, with an educational maryana from [employer] Thrive Questionnaire Date Thrive assessed: 04/11/25 I am a: Patient What is your living situation today?: I have a steady place to live Within the past 12 months, did the food you bought not last and you didn't have the money to get more?: Never true Within the past 12 months, did you worry whether your food would run out before you got money to buy more?: I choose not to answer this question Do you have trouble paying for medicines?: Yes Do you have trouble getting transportation to medical appointments?: No Do you have trouble paying your heating and electricity bill?: Yes Do you have trouble taking care of your child, family member or friend?: No Do you have trouble with day-to-day activities such as bathing, preparing meals, shopping, managing finances, etc.?: Yes Are you currently unemployed and looking for a job?: No Are you interested in more education?: No Please select the resources that you would like help with: Food and Utilities Currently or been in a relationship where the following occur: No concerns reported THRIVE Score: 1 AUDIT C Alcohol Use Questionnaire (AUDIT-C) 1. How often do you have a drink containing alcohol?: 2-4 times a month 2. How many drinks containing alcohol do you have on a typical day when you are drinking?: 1 or 2 3. How often do you have six or more drinks on one occasion?: Never Total Score: 2 Score Reviewed/Action Taken: No SAMSON-7 AMB Questionnaire SAMSON-7 Date SAMSON - 7 assessed: 04/11/25 (pt seeing therapist for SAD ) Feeling nervous, anxious, or on edge: 1 = Several days Not being able to stop or control worryin = Not at all Worrying too much about different things: 0 = Not at all Trouble relaxin = Several days Being so restless that it is hard to sit still: 2 = More than half the days Becoming easily annoyed or irritable: 1 = Several days Feeling afraid as if something awful might happen: 0 = Not at all Total SAMSON-7 score (0-4 normal; 5-9 mild; 10-14 moderate; 15-21 severe): 5 Source: Developed by Drs. Eleazar Vale, Holly Edwards, Wale Robb and colleagues, with an educational maryana from [employer] SAMSON-7 Assessment Billing SAMSON-7 Assessment Tool: SAMSON-7 Assessment 83881 Review of Systems Const All systems reviewed & are unremarkable except as noted in HPI and below Card Denies chest pain at rest, Denies chest pain with activity, Denies edema, Denies irregular heart rhythm, Denies claudication, Denies dyspnea, Denies dyspnea on exertion, Denies orthopnea, Denies paroxysmal nocturnal dyspnea and Denies slow heart rate Resp Denies cough, Denies dyspnea and Denies dyspnea on exertion GI Denies abdominal pain, Denies change in bowel habits, Denies excessive flatus, Denies nausea and Denies vomiting Physical exam (Primary Care) Vital Signs: Last Vital Signs Temp 97.5 F 04/11/25 13:03 Pulse 92 04/11/25 13:03 Resp 18 04/11/25 13:03 BP 102/74 04/11/25 13:03 Pulse Ox 98 04/11/25 13:03 Oxygen Delivery Method Room Air 04/11/25 13:03 BMI result Body Mass Index 24.7 Tobacco/Smoking Status: Tobacco use Status Tobacco use date assessed 04/11/25 04/11/25 13:09 Patient Tobacco Use Status Never used Tobacco 04/11/25 13:09 Tobacco use type 12/15/23 09:10 e-Cigarette/Vaping Use Never Used 04/11/25 13:09 PHQ-9: PHQ-9 Score PHQ-9: Total score 9 04/11/25 13:09 Depression Screening Interpretation: Positive Depression Screening Follow-up: Existing condition and Follow-up Visit Requested Thrive Assessment: Date of Thrive Assessment Date Thrive assessed 04/11/25 04/11/25 13:09 Currently or been in a relationship where the following occur: No concerns reported HENMT Head: Yes normal to inspection, Yes normocephalic and Yes atraumatic Ears: external ears normal Eyes General: appearance normal, both eyes and all related structures Eyelids: Yes eyelids normal Conjunctivae: conjunctivae normal Neck Neck: Yes normal visual inspection and Yes supple Resp Effort & Inspection: normal respiratory effort Auscultation: clear to auscultation bilaterally Cardio Jugular venous distension: no JVD Rate: regular rate Rhythm: regular rhythm Heart sounds: S1 normal heart sound present and S2 normal heart sound present GI Inspection: Yes normal to inspection Palpation (GI): Soft to palpation and nontender Auscultation: normal bowel sounds Skin General skin exam: no rashes or lesions noted Neuro General: no focal motor deficits Extrem General: Yes full ROM Psych Appearance: grossly normal Coding Level of Care Code Est Pt Prev Care 18-39y(64237) Diagnoses Physical exam Z00.00 Additional Codes PHQ-9 - 77404 - PHQ-9 Billing: Yes ([id number]) SAMSON-7 Assessment Billing - SAMSON-7 Assessment Tool: SAMSON-7 Assessment 79946 ([id number]) Time Spent (min) 30 Assessment & Plan Assessment & Plan (1) Physical exam: Onset Date: ~07/16/21 Comment: MASOUDROLANDO JESU's Pfizer 11/21, 12/13. Code(s): Z00.00 - Encounter for general adult medical examination without abnormal findings Category: Medical Plan The patient will continue her current medication regimen, as it is effectively managing her symptoms. She will be referred to dermatology for a follow-up on her psoriasis management. Preventative care measures include scheduling a Pap smear with an WATER ATTENDANT and ensuring the next Tdap vaccination is administered in 2025. Orders: Referrals WATER ATTENDANT Referral Z12.4 - Encounter for screening for malignant neoplasm of cervix
[2025-04-11 13:03] VITALS: BP 102/74; PULSE 92; RESP 18; TEMP 36.4; O2SAT 98; BMI 24.7
--- OUTSIDE RECORDS SUMMARY | 2025-04-11 14:13 | XMS_ITS | Clinical Summary ---
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 Active dextroamphetami ne-amphetamine (ADDERALL) 5 mg Tab 5 mg 2 (two) times a day. Active loratadine (CLARITIN) 10 mg tablet Take 10 mg by mouth daily. Active Active Problems No known active problems Social History Tobacco Use Types Packs/Day Years Used Date Smoking Tobacco: Never Smokeless Tobacco: Never Alcohol Use Standard Drinks/Week Comments Not Currently 0 (1 standard drink = 0.6 oz pur e alcohol) Education Answer Date Recorded Are you interested in more education? Not on te e 12/13/2022 Are you concerned about learning? Not on file 12/13/2022 No 12/13/2022 No 12/13/2022 Digital Access Answer Date Recorded No 01/13/2023 No 01/13/2023 Reliable internet access at home? Not on file 01/13/2023 Device with a working camera? Not on file Comments No Sex and Gender Information Value Date Recorded Sex Assigned at Female 03/10/2021 10:34 PM EDT Legal Sex Female 8:44 PM EDT Gender Identity Female 03/10/2021 10:34 PM EDT Sexual Orientation Lesbian or Cook 03/10/2021 10 :34 PM EDT Last Filed Vital Signs Vital Sign Reading Time Taken Comments Blood Pressure 145/83 03/10/2021 11:36 PM EDT Pulse 78 03/10/2021 11:36 PM EDT Temperature 36.9 C (98.5 F) 03/10/2021 10:35 PM EDT Respiratory Rate - - Oxygen Saturation 100% 03/10/2021 10:35 PM EDT Inhaled Oxygen Concentration - - Weight 56.2 kg (124 lb) 03/10/2021 10:30 PM EDT Height 157.5 cm (5' 2 ) 03/10/2021 10:30 PM EDT Body Mass Index 22.68 03/10/2021 10:30 PM EDT Plan of Treatment Health Maintenance Due Date Last Done Comments Adult Td,Tdap Booster 2003 MMR VACCINES (1 of 1 - Standard series) 2004 COMBINED DTaP,Tdap,Td (2 - Tdap) 2010 11/23/2007 DEPRESSION SCREENING 2015 SMOKING Hx and SMOKELESS TOBACCO SCREENING 2016 HPV VACCINES (1 - 3-dose series) 2018 CHLAMYDIA SCREENING 2019 MENINGOCOCCAL VACCINES (B) (1 of 2 - Standard) 2019 ADOLESCENT UNIVERSAL LIPID SCREENING 2020 HEPATITIS C SCREENING 2021 HIV ONE-TIME SCREENING (18-65 YEARS) 2021 COVID-19 VACCINE (2 - 2023- season) 2024 11/21/2020 PAP SMEAR 2024 INFLUENZA VACCINE (#1) 2025 HIB VACCINES Completed 06/15/2004, 11/18, 2003, Additional history exists HEPATITIS A VACCINES Completed 10/11/2010, 06/05/20 07 MENINGOCOCCAL VACCINES (ACWY) Completed 04/18/2020 PNEUMOCOCCAL VACCINES (0-49 years) Aged Out No longer eligible based on patient's age to complete this topic Medical Devices Not on file Insurance [employer] PPO [employer] PPO [facility] GIC PLUS PPO [facility] 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 It is not the complete legal health record.[facility]
== END 2025-04-11 13:25 | disposition home or self-care (01) ==
LOC: HO.HMCH 13:00
PROVIDERS: PCP Internal Medicine; Visit Provider Internal Medicine
DX: Z00.00 Encounter for general adult medical examination without abnormal findings (principal)

== ENCOUNTER → 2025-04-11 12:59 | Outpatient (BNVA) | payer OTHER, SELFPAY | PROVIDERS: PCP Internal Medicine; Visit Provider Internal Medicine | DX: Z00.00 Encounter for general adult medical examination without abnormal findings (principal); F32.9 Major depressive disorder, single episode, unspecified; L40.9 Psoriasis, unspecified | CPT/HCPCS: 96127 ==